=== PATIENT | male | born 2000 | race Caucasian/White ===

== ENCOUNTER 2019-04-12 11:03 | Inpatient (IN) ==
--- NOTE | 2019-04-01 08:33 | Anesthesiology Consultation ---
Date of Service April 01, 2019 Assessment & Plan (1) Encounter for pre-operative examination: - Check test AM DOS Chart Review Chart Review: Acceptable Risk for Surgery and Patient NOT seen in Pre Admission Testing History Surgery Operation Date: 04/12/19 13:25 Proposed Procedures p T12-L1 Decompression and Fusion with Spinal Cord Monitoring - Rui Pat DO Height/Weight Height: 5 ft 9.5 in Weight: 95.254 kg Allergies Allergy/AdvReac Type Severity Reaction Status Date / Time No Known Allergies Allergy Verified 03/31/19 14:30 Medications Home Medications Medication Instructions Recorded Confirmed Last Taken No Known Home Medications 03/31/19 03/31/19 Unknown Past Medical History Medical History Herniated disc Past Family History Family History Grandmother (Paternal) Family history of diabetes mellitus Aunt Family history of diabetes mellitus Past Surgical History Surgical History History of tonsillectomy History of wisdom tooth extraction Social History Smoking Status: Never smoker tobacco type: smokeless tobacco Do You Dip or Chew Tobacco: Yes Hx Alcohol Use: Yes alcohol intake frequency: holidays/special occasions only Hx Substance Use: No substance use type: marijuana Last Used Substance Other:: 2 DAYS AGO
[~2019-04-12 11:03] MED LIST: ACETAMINOPHEN 500 MG TAB PO SCH; CeleBREX 200 MG CAP PO SCH; GABAPENTIN 900 MG DOSE PO SCH; LR 15ML/HR IV SCH
[2019-04-12] MEDS: CEFAZOLIN 2000MG 2,000 MG/15 ML SYR IV SCH ×3 (12:56→21:22)
[2019-04-12] MEDS ORDERED: LIDOCAINE HCL 2% 2 ML VIAL/AMP(20MG/ML) INFIL ONE (13:27)
[2019-04-12] MEDS ORDERED: DEXAMETHASONE SOD INJ 4 MG/ML VIAL ONE (13:27)
[2019-04-12] MEDS ORDERED: ONDANSETRON INJ 2 MG/ML 2 ML VIAL ONE (13:27)
[2019-04-12] MEDS ORDERED: ROCURONIUM BROMIDE 10 MG/ML 5 ML VIAL ONE ×4 (13:27→15:54)
[2019-04-12] MEDS ORDERED: PROPOFOL IV EMULSION 10 MG/ML 20 ML VIAL IV ONE (13:27)
[2019-04-12] MEDS ORDERED: fentaNYL citrate 100 MCG/2 ML VIAL ONE ×2 (13:28→16:28)
[2019-04-12] MEDS ORDERED: MIDAZOLAM HCL 1 MG/ML 2ML VIAL ONE (13:28)
[2019-04-12] MEDS ORDERED: ePHEDrine sulfate 50 MG/ML AMP IV PRN (13:31)
[2019-04-12] MEDS ORDERED: fentaNYL citrate 100 MCG/2 ML VIAL IV PRN (13:31)
[2019-04-12] MEDS ORDERED: ATROPINE SULFATE 0.1 MG/ML 10ML SYR IV PRN (13:31)
[2019-04-12] MEDS ORDERED: MoRPHine SULFATE 2 MG/ML CARP IV PRN (13:31)
[2019-04-12] MEDS ORDERED: ONDANSETRON INJ 2 MG/ML 2 ML VIAL IV PRN ×2 (13:31→17:27)
--- NOTE | 2019-04-12 14:07 | History & Physical Bridge Note ---
Date of Service April 12, 2019 History & Physical Bridge Note I have examined the patient, reviewed the History & Physical and in the interval since the performance of the History & Physical I have noted the following changes of clinical significance: no changes noted
[2019-04-12] MEDS ORDERED: BUPIVACAINE 0.5 % 5 MG/1 ML MPF 30ML VIAL ONE (14:08)
--- NOTE | 2019-04-12 14:08 | History & Physical Report ---
Date of Service April 12, 2019 Assessment & Plan (1) Spinal stenosis, lumbar region with neurogenic claudication: T12-L1 decompression and fusion Present on Admission?: Yes History of Present Illness Chief Complaint: Back and bilateral leg pain and weakness Primary Care Provider: NO PCP This is a 18-year-old male who presents with a steady decline in status with chronic back and leg weakness. Allergies Allergy/AdvReac Type Severity Reaction Status Date / Time No Known Allergies Allergy Verified 04/12/19 11:49 Home Medications Home Medications Medication Instructions Recorded Confirmed Type No Known Home Medications 03/31/19 04/12/19 History Past Med/Surg History Medical History Herniated disc Surgical History History of tonsillectomy History of wisdom tooth extraction Family History Grandmother (Paternal) Family history of diabetes mellitus Aunt Family history of diabetes mellitus Social History Preferred Language: Swedish Communication Ability: Effective Stamping Operator Required: No Beliefs That Will Affect Care: None Current Living Situation: Family Other Information That Helps Us Care for You: No Feels Safe at Home: Yes Safety Concerns: Feels Safe At This Time Smoking Status: Never smoker Tobacco Type: smokeless tobacco Do You Dip or Chew Tobacco: Yes Second Hand Exposure: No Hx Alcohol Use: Yes Hx Substance Use: No Physical Exam Physical Exam: Patient is alert and oriented with weakness to testing the bilateral extremities. Results & Data Vital Signs (Past 12 Hours) Vital Signs Temp Pulse Resp BP Pulse Ox 04/12/19 11:50 36.3 C L 51 L 20 129/83 97
[2019-04-12] MEDS ORDERED: BACITRACIN INJ 50,000 UNIT VIAL ONE (14:09)
[2019-04-12] MEDS ORDERED: BUPIVACAINE/EPINEPHRINE 0.5% MPF 1:200,000 30 ML VIAL ONE (14:29)
[2019-04-12] MEDS ORDERED: HYDROmorphone INJ 2 MG/ML SYR/VIAL ONE (14:39)
[2019-04-12] MEDS ORDERED: PHENYLEPHRINE 100MCG/ML 5ML SYR ONE (15:14)
[2019-04-12] MEDS ORDERED: FLOSEAL HEMOSTATIC MATRIX 10ML TOP ONE (15:26)
[2019-04-12] MEDS ORDERED: GLYCOPYRROLATE 0.2 MG/ML VIAL ONE (15:54)
[2019-04-12] MEDS ORDERED: NEOSTIGMINE METHYLSULFATE 1 MG/ML 10ML VIAL ONE (15:54)
--- NOTE | 2019-04-12 16:24 | Fluoroscopy Report ---
LUMBAR SPINE, INTRAOPERATIVE FLUOROSCOPY HISTORY: T12-L1 decompression and fusion. FLUOROSCOPY TIME: 36 seconds. FINDINGS: Intraoperative fluoroscopy was provided for the lumbar spine. There are 2 fluoroscopic spot images were obtained. Posterior decompression fusion at T12-L1 with pedicle screws and rods. The td dware appears intact. IMPRESSION: Fluoroscopy provided for a T12-L1 posterior decompression and fusion. Electronically signed by: Regulo Valles M.D. 04/12/2019 4:23 PM
--- NOTE | 2019-04-12 16:34 | Operative Report ---
Post Operative Report Pre & Post Diagnosis Operation Date: 04/12/19 13:25 Pre-Op Diagnosis: Lumbar spinal stenosis with neurogenic claudication and myelopathy. Post-Op Diagnosis: Same Procedure Operation Date: 04/12/19 13:25 Actual Procedures #1 lumbar decompression bilateral medial facetectomies foraminotomies T12-L1. #2 posterior spinal fusion T12-L1. #3 placement posterior instrumentation T12- L1. #4 interbody fusion T12-L1. #5 placement of peek cage 11 x 26 mm T12-L1. #6 placement of local autograft in the posterior lateral gutters. #7 placement infuse collagen sponge bone mass graft in the posterior lateral gutters and ostial amp and interbody space. Surgeon Rui Pat, Machining Associate None Estimated Blood Loss 150 Findings See Below The patient is 5 foot 9-1/2 inches tall weighing 95.8 kg with a BMI of 30.8. Patient's body habitus did contribute to increased technical difficulty adding a minimum of 25% increase in operative time. Specimens None Indications This is a 18-year-old male that failed extensive course of nonoperative care elected to go the above-mentioned procedure. Description of Procedure Patient was met with identified and informed consent obtained. He was then taken to the operative suite underwent intubation placed in a prone position the Hero table on top of the Jadiel frame. All bony prominences well-padded eyes inspected to ensure no external pressure placed upon the peer at this point the thoracolumbar spine was prepped and draped in normal sterile fashion. Sharp dissection with the assistance of Bovie cautery was performed down to and exposing the lamina and transverse processes of T12 and L1. From a caudal to cephalad fashion complete laminectomy of T12 was performed including bilateral medial facetectomies foraminotomies addressing severe stenosis. Pedicle screws were then placed in T12 and L1 bilaterally with the assistance of fluoroscopy and appropriate size maurice placed. By way of a trans-foraminal approach on the left complete discectomy was performed in plate graded to subcortical B bone and an 11 x 26 mm peek cage filled with osteo-amp bone graft tapped in position. The rods were then compressed locked into final position bilaterally. The transverse processes of T12 and L1 burred to subcortical bleeding bone. Infuse collagen sponge master graft local autograft placed in the posterior lateral gutters. 15 round TITO drain inserted. The incision was then closed with 1-0 Vicryl in the fascia 2-0 Vicryl subcutaneous layer and 4-0 Monocryl for final skin closure. Steri-Strip sterile dressings placed. Patient will continue to PACU stable condition. Please note spinal cord monitoring was utilized that procedure no changes noted. I attest to the content of the Intraoperative Record and any orders documented therein. Any exceptions are noted below.
--- NOTE | 2019-04-12 17:15 | Anesthesiology Progress Note ---
Date of Service April 12, 2019 Anesthesia Post Procedure Vital Signs Vital Signs: Temp Pulse Pulse Resp BP Pulse Ox 04/12/19 17:10 36.8 C 56 L 12 135/84 99 04/12/19 17:00 55 L 12 128/78 99 04/12/19 16:50 55 L 12 141/88 H 97 04/12/19 16:40 56 L 22 151/90 H 100 04/12/19 16:33 36.7 C 56 L 15 151/90 H 100 04/12/19 11:50 36.3 C L 51 L 20 129/83 97 Pain Intensity Back: Pain Intensity: 3 Transfer of Care Handoff Completed per policy Notes Mental Status: alert / awake / arousable and participated in evaluation Patient Amnestic to Procedure: Yes Nausea / Vomiting: adequately controlled Pain: adequately controlled Airway Patency, RR, SpO2: stable & adequate BP & HR: stable & adequate Hydration State: stable & adequate Anesthetic Complications: no major complications apparent
[2019-04-12] MEDS ORDERED: PROMETHAZINE HCL 12.5 MG in SODIUM CHLORIDE 0.9% 50 ML IV PRN (17:27)
[2019-04-12] MEDS ORDERED: LORazepam 0.5 MG TAB PO PRN (17:27)
[2019-04-12] MEDS ORDERED: HYDROmorphone INJ 0.5 MG/0.5 ML SYR IV PRN (17:27)
[2019-04-12] MEDS ORDERED: FAMOTIDINE 20 MG TAB PO PRN (17:27)
[2019-04-12] MEDS ORDERED: SOD PHOSPHATE/SOD BIPHOSPHATE ENEMA 132 ML BTL PR PRN (17:27)
[2019-04-12] MEDS ORDERED: METOCLOPRAMIDE HCL INJ 5 MG/ML 2 ML VIAL IV PRN (17:27)
[2019-04-12] MEDS ORDERED: LORazepam 0.5 MG/1 ML VIAL IV PRN (17:27)
[2019-04-12] MEDS ORDERED: DO NOT ADMINISTER FLU VACCINE PRN (17:27)
[2019-04-12] MEDS ORDERED: ONDANSETRON 4 MG TAB PO PRN (17:27)
[2019-04-12] MEDS ORDERED: ACETAMINOPHEN 1,000 MG/100 ML VIAL IV PRN (17:27)
[2019-04-12] MEDS ORDERED: BISACODYL 10 MG SUPP PR PRN (17:27)
[2019-04-12] MEDS ORDERED: DO NOT ADMINISTER PNEUMOCOCCAL VACCINE PRN (17:27)
[2019-04-12] MEDS ORDERED: MAGNESIUM HYDROXIDE SUSP 30 ML UDC PO PRN (17:27)
[2019-04-12] MEDS ORDERED: ALUMINUM/MAGNESIUM SUSP 30 ML UDC PO PRN (17:27)
[2019-04-12] MEDS: KETOROLAC 30 MG/ML VIAL IV SCH (18:13)
[2019-04-12] MEDS: DOCUSATE SODIUM/SENNA 50/8.6MG TAB PO SCH (20:29)
[2019-04-12] MEDS: LACTATED RINGER'S 1,000 ML IV SCH (20:38)
[2019-04-12] MEDS: OXYCODONE HCL IR 5 MG TAB (IMMEDIATE RELEASE) PO PRN (21:22)
[2019-04-13] MEDS: KETOROLAC 30 MG/ML VIAL IV SCH ×3 (00:02→11:29)
[2019-04-13] MEDS: LACTATED RINGER'S 1,000 ML IV SCH (02:52)
[2019-04-13] MEDS: POLYETHYLENE (MIRALAX) 17 GM PACK PO SCH ×4 (05:47→23:43)
[2019-04-13] MEDS: CEFAZOLIN 2000MG 2,000 MG/15 ML SYR IV SCH (05:47)
[2019-04-13 06:19] LABS: Basophils # (auto) 0.01 K/uL (0-0.2); Basophils % (auto) 0.1 %; Hematocrit (blood only) 40.1 % (42-52); Hemoglobin 14.6 g/dL (14.0-18.0); Immature Granulocytes # (auto) 0.04 K/uL (0.00-0.02); Immature Granulocytes % (auto) 0.3 %; Lymphocytes # (auto) 1.46 K/uL (1.2-3.4); Lymphocytes % (auto) 9.5 %; Mean Corpuscular Hgb Conc 36.4 g/dL (32-36); Mean Corpuscular Volume 85.3 fL (80-100); Mean Platelet Volume 8.6 fL (7.4-10.4); Monocytes # (auto) 1.22 K/uL (0.11-0.59); Monocytes % (auto) 7.9 %; Neutrophils # (auto) 12.71 K/uL (1.4-6.5); Neutrophils % (auto) 82.2 %; Platelet Count 253 K/uL (130-400); RDW Standard Deviation 37.4 fL (36.4-46.3); White Blood Count 15.44 K/uL (4.8-10.8)
[2019-04-13 06:57] LABS: BUN Creatinine Ratio 17.2 (10-20); Creatinine Clr Calc Pharmacy 144.4 ml/min; Est GFR (African American) 134.7; Est GFR (Non-African American) 116.2; Potassium 4.3 mmol/L (3.5-5.1)
--- NOTE | 2019-04-13 07:48 | Anesthesiology Progress Note ---
Date of Service April 13, 2019 Anesthesia Post Procedure Vital Signs Vital Signs: Temp Pulse Pulse Resp BP Pulse Ox 04/13/19 07:30 36.6 C 104 H 16 120/62 98 04/13/19 03:28 36.7 C 67 16 124/70 97 04/12/19 23:11 36.6 C 56 L 15 126/77 96 04/12/19 20:40 36.5 C 62 17 126/84 97 04/12/19 19:30 36.9 C 64 18 126/68 97 04/12/19 18:30 36.5 C 66 17 125/71 99 04/12/19 17:30 36.5 C 60 12 132/81 99 04/12/19 17:10 36.8 C 56 L 12 135/84 99 04/12/19 17:00 55 L 12 128/78 99 04/12/19 16:50 55 L 12 141/88 H 97 04/12/19 16:40 56 L 22 151/90 H 100 04/12/19 16:33 36.7 C 56 L 15 151/90 H 100 04/12/19 11:50 36.3 C L 51 L 20 129/83 97 Pain Intensity Back: Pain Intensity: 5 Notes Mental Status: alert / awake / arousable and participated in evaluation Patient Amnestic to Procedure: Yes Nausea / Vomiting: adequately controlled Pain: adequately controlled Airway Patency, RR, SpO2: stable & adequate BP & HR: stable & adequate Hydration State: stable & adequate Anesthetic Complications: no major complications apparent and Pt Satisfied with anesthetic care
[2019-04-13] MEDS: OXYCODONE HCL IR 5 MG TAB (IMMEDIATE RELEASE) PO PRN ×3 (08:26→19:06)
--- NOTE | 2019-04-13 14:41 | Orthopedic Progress Note ---
Date of Service April 13, 2019 Assessment & Plan (1) Spinal stenosis, lumbar region with neurogenic claudication: This time we will continue physical therapy advance his bowel regiment monitor his TITO output anticipate discharge home in the next few days. Present on Admission?: Yes Subjective Patient's back pain is controlled leg symptoms improved. Physical Exam Physical Exam: On exam is good strength testing appears comfortable. Results & Data Vital Signs (Past 12 Hours) Vital Signs Temp Pulse Resp BP Pulse Ox 04/13/19 11:51 36.6 C 58 L 16 126/75 99 04/13/19 07:30 36.6 C 104 H 16 120/62 98 04/13/19 03:28 36.7 C 67 16 124/70 97
[2019-04-13] MEDS: TRAMADOL HCL 50 MG TABLET PO PRN (17:42)
[2019-04-13] MEDS: DOCUSATE SODIUM/SENNA 50/8.6MG TAB PO SCH (21:17)
[2019-04-14] MEDS: POLYETHYLENE (MIRALAX) 17 GM PACK PO SCH ×4 (05:44→23:38)
[2019-04-14] MEDS: OXYCODONE HCL IR 5 MG TAB (IMMEDIATE RELEASE) PO PRN ×4 (08:00→22:17)
--- NOTE | 2019-04-14 13:07 | Orthopedic Progress Note ---
Date of Service April 14, 2019 Assessment & Plan (1) Spinal stenosis, lumbar region with neurogenic claudication: This time we will continue physical therapy. Plan to maintain his TITO drain until tomorrow. Anticipate discharge home tomorrow. Present on Admission?: Yes Subjective Patient's back pain is controlled leg symptoms improving. He is ambulating without difficulty. Physical Exam Physical Exam: On exam is good strength testing appears comfortable. Results & Data Vital Signs (Past 12 Hours) Vital Signs Temp Pulse Resp BP Pulse Ox 04/14/19 07:22 36.8 C 61 16 123/73 97
[2019-04-14] MEDS: DOCUSATE SODIUM/SENNA 50/8.6MG TAB PO SCH (20:12)
[2019-04-15] MEDS: POLYETHYLENE (MIRALAX) 17 GM PACK PO SCH (05:49)
--- NOTE | 2019-04-15 08:25 | Discharge Summary ---
Date of Service April 15, 2019 Admission HPI Per Admitting Provider This is a 18-year-old male who presents with a steady decline in status with chronic back and leg weakness. Principal Diagnosis Spinal stenosis with neurogenic claudication Discharge Data Allergies Allergy/AdvReac Type Severity Reaction Status Date / Time No Known Allergies Allergy Verified 04/12/19 11:49 Consultations 04/12/19 17:27 Consult Case Management - Discharge Planning Routine Procedures Performed Operation Date: 04/12/19 13:25 Actual Procedures p T12-L1 Decompression and Fusion with Spinal Cord Monitoring - Rui Pat DO Ordered Studies 04/12/19 13:25 FL fluoroscopy <1hr Routine FL lumbar spine 2-3V Routine Hospital Course (1) Spinal stenosis, lumbar region with neurogenic claudication: Patient is status post lumbar decompression fusion tolerated as well as taken to orthopedic for postoperative. Postop day and when she was up and ambulating nicely. Leg symptoms improved. He progressed appropriately postop day #2. TITO drain decreasing probably. Subsequently discharged home. Discharge orders and instructions from the chart for further review. Total Time Total Time Spent Total Time Spent (In Minutes): 20 minutes Discharge Plan Discharge Items Patient Disposition: Home - Self-Care Reason For Visit: Other Intervertebral Disc Displacement, Thoracic Discharge Diagnosis: Lumbar spinal stenosis with myelopathy Discharge Goals: Improve function Activity: Per 'Additional Instructions' section Non-emergency contact: Primary Care Provider Call non-emergency contact if: you have any medication questions Follow-up/Referrals: PCP,NO [Primary Care Provider] - Diet: Regular Addtl Provider Instructions: ACTIVITY RECOMMENDATIONS: SELF CARE INSTRUCTIONS AFTER THORACIC/LUMBAR FUSIONS 1. You may walk to your tolerance. It is good exercise for your legs and back. Expect some back and intermittent leg aches and pains. 2. You may perform "counter-top" level activities (make a sandwich, breanna with a project, etc.). 3. No bending or lifting of more than 10 pounds or back twisting of any nature (roll like a log when turning in bed). 4. You may ride in a car for 20-30 minutes at a time. No driving until after your first visit with your doctor. 5. Frequent changes of position and restricting sitting to 30 minutes at a time will help limit the amount of back spasms and stiffness you may experience. 6. You may discontinue the use of ambulatory aids (cane, crutches, etc.) once your strength and confidence allow. 7. You may senior systems administrator the shower and let water strike your incision when you arrive home at least once daily. Do not take a tub bath, sit in a hot tub or go into a swimming pool until after your first recheck in the office. SPECIAL CARE INSTRUCTIONS: VERY IMPORTANT TO READ AND REVIEW A. Your surgical incision has been closed with a cosmetic suture under the skin that will dissolve in about 6 weeks. In 14 days, you can use a pair of clean scissors and cut the suture that is left outside of the skin at the ends of your incision. 1. The small skin tapes can be removed 7 days after surgery if they have not fallen off by that point. 2. You may keep the wound open to air as much as possible to promote healing after post-op day number 5 unless told otherwise by your doctor. 3. If you think the wound looks like it is becoming infected (redness or worsening drainage) and/or you are experiencing fever, chill or worsening back pain and muscle spasms, contact the office so that we may evaluate you as soon as possible. B. Complications are uncommon, but please contact us if you have any signs or symptoms of: 1. wound infection (fever higher than 102.5 degrees F, redness, separation of wound, drainage, or increasing pain from the incision) 2. blood clots in legs (pain, swelling, redness and warmth in legs) 3. urinary tract infection (fever higher than 102.5 degrees F, burning upon urination or increased frequency of urination) 4. nerve problems (inability to walk on your toes or heels, numbness, loss of bowel or bladder control) 5. any other symptoms that concern you C. Please call the office at if you have any concerns or questions about your operation or recovery. D. No smoking! Smoking drastically decreases the chance of a solid fusion. E. Do not take any anti-inflammatory medications (Indocin, Advil, Motrin, Aspirin, Naprosyn, etc.) as these may inhibit the chance of a solid fusion. Tylenol is okay to take for pain. MANAGING PAIN AFTER SPINAL SURGERY 1. Narcotic medication is intended for short-term use and will be provided for surgical pain. Surgical pain usually lasts for a period of 4-6 weeks. Narcotic medication includes Percocet, Vicodin, Darvocet, Tylenol #3 or Lortab. 2. Longer-term pain is more appropriately treated with non-narcotic medication such as Tylenol ES. 3. Muscle spasm is not appropriately treated with narcotics. Muscle relaxers such as Soma, Flexeril or Skelaxin can be used along with Tylenol ES. 4. Remember that we all live with some "aches and pains". This is not unusual or uncommon after an injury or as we get older. a. Back pain is expected and may include muscle spasms for 4 to 6 weeks after surgery. The pain should gradually improve. If the pain worsens for no apparent reason, please contact the office. b. Intermittent leg pain may also be experienced and should not be concerned about unless it worsens for no apparent reason. If so, please contact the office. 5. We will provide appropriate medication within the normal guidelines of their prescribed use. We will also be very cautious and aware of potential abuse and extended duration of patients' medication needs. a. Pain medications are for your comfort and to assist with sleep and rest so that the tissue can heal. They are not provided in order to return to normal activity and should not be used through the day. To do so or worsening pain at night can result from ongoing tissue damage and development of tolerance to the prescribed medicine. 6. Please allow 2-3 days to process refills. Prescriptions will not be mailed but must be picked up at the office. FOLLOW UP VISIT: Keep your scheduled follow-up appointment. Any questions, please call the office at . Prescriptions: New tramadol 50 mg Tablet 50 mg PO Q4H PRN (Reason: Pain, Moderate) Qty: 30 RF: 0 oxycodone 5 mg Tablet 5 mg PO Q4H PRN (Reason: Pain, Severe) Qty: 30 RF: 0 No Action No Known Home Medications RF: 0 Stand-Alone Forms: [facility] Discharge Orders: Discharge Order (Routine); Ordered 04/15/19 Ordered By: Rui Pat Admission Data Admit Date/Time: 04/12/19 16:26 Attending Provider: Rui Pat Admit Provider: Rui Pat Primary Care Provider: PCP,NO Service: Surgical Services
[2019-04-15] MEDS: OXYCODONE HCL IR 5 MG TAB (IMMEDIATE RELEASE) PO PRN (08:53)
[2019-04-15] MEDS: TRAMADOL HCL 50 MG TABLET PO PRN (12:09)
== END 2019-04-15 12:33 | disposition home or self-care (01) | DRG 455 ==
LOC: ASU 11:03 → 3E 16:26
DX: M48.062 Spinal stenosis, lumbar region with neurogenic claudication